=== PATIENT | female | born 1965 | race Caucasian/White ===

== ENCOUNTER 2018-08-01 14:37 | Inpatient (IN) | payer OTHER ==
[~2018-08-01] VITALS: Ht 167.6 cm; Wt 72.2 kg
[2018-08-01] MEDS ORDERED: METF500T17 PO (14:49)
[2018-08-01 15:28] LABS: MEAN CORPUSCULAR HEMOGLOBIN 33.1 pg (27.0-34.8); MEAN CORPUSCULAR HGB CONC 34.3 g/dL (32.4-35.8); MEAN CORPUSCULAR VOLUME 96.4 fL (80-100); MEAN PLATELET VOLUME 9.2 fL (7.4-10.4); PLATELET COUNT 269 x10^3/uL (130-400); RED BLOOD COUNT 4.28 x10^6/uL (3.82-5.3); RED CELL DISTRIBUTION WIDTH 13.1 % (9.6-15.2)
[2018-08-01 15:39] LABS: ALANINE AMINOTRANSFERASE 18 U/L (12-78); ALBUMIN 3.8 g/dL (3.4-5.0); ANION GAP 11 mmol/L (5-15); CHLORIDE 106 mmol/L (98-107); CREATININE 0.91 mg/dL (0.55-1.02)
[2018-08-01 15:43] LABS: ALKALINE PHOSPHATASE 105 U/L (45-117); BILIRUBIN,TOTAL 0.6 mg/dL (0.2-1.0); TOTAL PROTEIN 7.8 g/dL (6.4-8.2); TROPONIN I < 0.015 ng/mL (0.000-0.045)
[2018-08-01 15:57] LABS: BASOPHILS # (AUTO) 0.04 x10^3/uL (0-0.1); BASOPHILS % (AUTO) 1 % (0-1); EOSINOPHILS # (AUTO) 0.07 x10^3/uL (0-0.4); EOSINOPHILS % (AUTO) 1 % (1-7); LYMPHOCYTES # (AUTO) 2.56 x10^3/uL (1-3.4); LYMPHOCYTES % (AUTO) 34 % (22-44); MD SCAN; MONOCYTES # (AUTO) 0.34 x10^3/uL (0.2-0.8); MONOCYTES % (AUTO) 5 % (2-9); NEUTROPHILS # (AUTO) 4.53 x10^3/uL (1.8-6.8); NEUTROPHILS % (AUTO) 60 % (42-75)
[2018-08-01 16:01] LABS: D-DIMER 1.16 ug/mlFEU (0.00-0.52); INTERNATIONAL NORMALIZED RATIO 0.94 (0.93-1.1); PROTHROMBIN TIME 9.7 Seconds (9.6-11.5)
[2018-08-01] MEDS ORDERED: SODIUM CHLORIDE 0.9%, 500ML IVBOLUS ONE (16:30)
[2018-08-01] MEDS ORDERED: OMNIPAQUE 350 MG/ML, 100ML BOTTLE ONE (17:38)
[2018-08-01] MEDS ORDERED: ONDANSETRON 2MG/ML, 2ML IVPush PRN (19:00)
[2018-08-01] MEDS ORDERED: ONDANSETRON ODT 4 MG PO PRN (19:00)
[2018-08-01] MEDS ORDERED: TRAZODONE 50MG TABLET PO PRN (19:00)
[2018-08-01 19:39] LABS: HEMOGLOBIN A1C 7.3 % (4.2-6.3)
[2018-08-01 20:30] VITALS: BP 106/69
[2018-08-01] MEDS ORDERED: GLIP10TA13 PO (22:08)
[2018-08-02 00:50] VITALS: BP 95/63
[2018-08-02 05:00] LABS: ANION GAP 7 mmol/L (5-15); CALCIUM 8.2 mg/dL (8.5-10.1); CHLORIDE 106 mmol/L (98-107)
[2018-08-02 05:04] LABS: CREATININE 0.78 mg/dL (0.55-1.02)
[2018-08-02 08:48] VITALS: BP 111/74
[2018-08-02] MEDS: ACETAMINOPHEN 325 MG TABLET PO PRN ×2 (14:22→21:15)
[2018-08-02 14:27] VITALS: BP 105/68
[2018-08-02 21:13] VITALS: BP 102/66
[2018-08-03 02:55] VITALS: BP 130/78
[2018-08-03 08:07] VITALS: BP 132/74
[2018-08-03] MEDS ORDERED: METFORMIN 500 MG HOMEMEDPO SCH (09:00)
== END 2018-08-03 08:00 | disposition home or self-care (01) | DRG 312 ==
LOC: ED 18:00 → EDIP 19:25 → 5SO 20:08
PROVIDERS: ADMIT Internal Medicine; ATTEND Internal Medicine
DX: R55 Syncope and collapse (principal); E87.0 Hyperosmolality and hypernatremia; R42 Dizziness and giddiness; E11.9 Type 2 diabetes mellitus without complications; I34.0 Nonrheumatic mitral (valve) insufficiency; R79.1 Abnormal coagulation profile; R00.2 Palpitations; R00.0 Tachycardia, unspecified; F17.210 Nicotine dependence, cigarettes, uncomplicated
CPT/HCPCS: 0399T; 36415; 71045; 71275; 80048; 80053; 82962; 83036; 83880; 84484; 85025; 85379; 85610; 85730; 93005; 93306; G0378; Q9967